=== PATIENT | male | born 1945 ===

== ENCOUNTER → 2022-04-17 15:00 | Outpatient (BNVA) | payer MEDICARE, SELFPAY | PROVIDERS: PCP Family Medicine; Visit Provider Psychiatry & Neurology Neurology | DX: F03.90 Unspecified dementia, unspecified severity, without behavioral disturbance, psychotic disturbance, mood disturbance, and anxiety (principal); R26.9 Unspecified abnormalities of gait and mobility | CPT/HCPCS: 99202 ==

== ENCOUNTER → 2022-06-17 15:22 | Outpatient (BNVA) | payer MEDICARE, SELFPAY | PROVIDERS: PCP Family Medicine; Visit Provider Nurse Practitioner Family | DX: F03.90 Unspecified dementia, unspecified severity, without behavioral disturbance, psychotic disturbance, mood disturbance, and anxiety (principal); R26.9 Unspecified abnormalities of gait and mobility; R41.89 Other symptoms and signs involving cognitive functions and awareness; Z79.899 Other long term (current) drug therapy | CPT/HCPCS: 99212 ==

== ENCOUNTER → 2022-08-19 15:21 | Outpatient (BNVA) | payer MEDICARE, SELFPAY | PROVIDERS: PCP Family Medicine; Visit Provider Nurse Practitioner Family | DX: R26.9 Unspecified abnormalities of gait and mobility (principal); F03.90 Unspecified dementia, unspecified severity, without behavioral disturbance, psychotic disturbance, mood disturbance, and anxiety | CPT/HCPCS: 99212 ==

== ENCOUNTER → 2022-12-07 11:14 | Outpatient (BNVA) | payer MEDICARE, SELFPAY | PROVIDERS: PCP Family Medicine; Visit Provider Nurse Practitioner Family | DX: R41.89 Other symptoms and signs involving cognitive functions and awareness (principal); R26.9 Unspecified abnormalities of gait and mobility; F03.90 Unspecified dementia, unspecified severity, without behavioral disturbance, psychotic disturbance, mood disturbance, and anxiety; Z79.899 Other long term (current) drug therapy | CPT/HCPCS: 99212 ==

== ENCOUNTER → 2023-03-30 09:15 | Outpatient (BNVA) | payer MEDICARE, SELFPAY | PROVIDERS: PCP Family Medicine; Visit Provider Nurse Practitioner Family | DX: F03.90 Unspecified dementia, unspecified severity, without behavioral disturbance, psychotic disturbance, mood disturbance, and anxiety (principal); R41.89 Other symptoms and signs involving cognitive functions and awareness; R26.9 Unspecified abnormalities of gait and mobility; G47.33 Obstructive sleep apnea (adult) (pediatric); Z79.899 Other long term (current) drug therapy; Z99.89 Dependence on other enabling machines and devices | CPT/HCPCS: 99212 ==

== ENCOUNTER → 2023-05-14 19:30 | Outpatient (REF) | payer MEDICARE, SELFPAY | LOC: HO.SL 19:30 | PROVIDERS: PCP Internal Medicine; Visit Provider Nurse Practitioner Family | DX: G47.33 Obstructive sleep apnea (adult) (pediatric) (principal); Z99.89 Dependence on other enabling machines and devices | CPT/HCPCS: 95810 ==

== ENCOUNTER → 2023-05-14 22:19 | Outpatient (BNV) | payer MEDICARE, SELFPAY | PROVIDERS: PCP Internal Medicine; Visit Provider Internal Medicine | DX: G47.33 Obstructive sleep apnea (adult) (pediatric) (principal) | CPT/HCPCS: 95810 ==

== ENCOUNTER 2023-09-02 10:40 | Outpatient (AMB) | payer MEDICARE, SELFPAY ==
--- NOTE | 2023-09-02 10:46 | A.OFFVIS_ITS ---
Intake Vital Signs 09/02/23 10:51 Weight 164 lb 2 oz BP 120/80 Blood Pressure Location Lt brachial Position Sitting Pulse 90 Pulse Source Pulse Oximeter Pulse Oximetry (%) 100 Oxygen Delivery Method Room Air Intake Visit Reasons: f/u appt for weakness & Sleep-Confirmed Prescription Clerk Lenses Required: No Allergies Seasonal Allergies Allergy (Mild, Verified 09/02/23 10:47) Unknown HPI HPI Comments History of Present Illness Details 78 y/o male patient presents with his si ster for follow up of dementia and DEREK. 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 He is on memantine 28 mg daily, no side effect reported. Pt's sister reports his BS is managed well. He eats better now, and visiting nurse comes twice a week to check him. Pt lives with his and he has Meals on Wheels services, and his sister deliver his meals, too. Pt's daughter visit to help the patient. The PSG sleep study result was significant for a mild degree of sleep apnea. The AHI was 10/hr and oxygen loulou was 82%. The sleep study was limited study due to a less amount of sleep recorded and absence of REM sleep. In lag CPAP titration study scheduled this Wednesday. He uses walker, no falls reported. He finished home PT and OT. He can do ADLs with assistance. Denies confusion. He fell from bed, and uses hospital bed with rails to prevent fall. [facility] Medical History Aortic aneurysm DEREK on CPAP Prostate cancer Heart failure Hypertension Hyperlipidemia Paroxysmal atrial fibrillation Diabetes Surgical History History of bladder surgery History of robot-assisted laparoscopic radical prostatectomy Social History (Updated 09/02/23 @ 10:51 by Patty Arita CMA) Household Members: Spouse Household Members Other:: Alcohol intake: former Patient Tobacco Use Status: Former Tobacco user Review of Systems Const All systems reviewed & are unremarkable except as noted in HPI and below Physical Exam Vital Signs: Last Vital Signs Pulse 90 09/02/23 10:51 BP 120/80 09/02/23 10:51 Pulse Ox 100 09/02/23 10:51 Oxygen Delivery Method Room Air 09/02/23 10:51 Const Orientation/consciousness: oriented to person and oriented to place Neuro General: oriented to person and oriented to place Cranial nerves: Yes Bilaterally intact EOM present, Yes Normal facial strength present (left facial droop), Yes Midline tongue present, Yes Ability to bilaterally rotate head present and Yes Ability to bilaterally elevate shoulders present Speech: Other speech findings present (Neuro) (mild slurring) Gait exam (Neuro): Assistive device used (walker) and Other gait observations present (mild off balance and slowing) Motor exam (neuro): 5/5 motor strength present throughout and Normal motor muscle tone present throughout Deep tendon reflexes (DTR's): Right triceps reflex intensity grade: 1+, Left triceps reflex intensity grade: 1+, Rt Biceps (C5, C6): 1+, Left biceps reflex intensity grade: 0, Right brachioradialis reflex intensity grade: 0, Left brachioradialis reflex intensity grade: 0, Right patellar reflex intensity grade: 0 and Left patellar reflex intensity grade: 0 Psych Appearance: grossly normal Affect: normal affect Assessment & Plan Assessment & Plan (1) Cognitive impairment: Code(s): R41.89 - Other symptoms and signs involving cognitive functions and awareness (2) Gait disorder: Comment: multi-factorial diabetes, musculoskeletal , neuropathy? Code(s): R26.9 - Unspecified abnormalities of gait and mobility (3) Dementia: Comment: likely vascular Code(s): F03.90 - Unspecified dementia, unspecified severity, without behavioral disturbance, psychotic disturbance, mood disturbance, and anxiety (4) DEREK on CPAP: Code(s): G47.33 - Obstructive sleep apnea (adult) (pediatric); Z99.89 - Dependence on other enabling machines and devices Plan Continue to take memantine to 28 mg daily. Advised patient to increase PO intake with water. Advised patient to undergo in-lab sleep titration study to find optimal CPAP pressure. Medications: New melatonin 3 mg PO BEDTIME 30 days 30 caps 1RF sleep Coding Level of Care Code Est Pt Level 3 (11458) Diagnoses Cognitive impairment R41.89 Gait disorder R26.9 Dementia F03.90 DEREK on CPAP G47.33; Z99.89
[2023-09-02 10:51] VITALS: BP 120/80; PULSE 90; O2SAT 100
== END 2023-09-02 11:10 | disposition home or self-care (01) ==
PROVIDERS: PCP Internal Medicine; Visit Provider Nurse Practitioner Family
DX: R41.89 Other symptoms and signs involving cognitive functions and awareness (principal); R26.9 Unspecified abnormalities of gait and mobility; F03.90 Unspecified dementia, unspecified severity, without behavioral disturbance, psychotic disturbance, mood disturbance, and anxiety; G47.33 Obstructive sleep apnea (adult) (pediatric); Z99.89 Dependence on other enabling machines and devices
CPT/HCPCS: 99213

== ENCOUNTER → 2023-09-02 10:40 | Outpatient (BNVA) | payer MEDICARE, SELFPAY | PROVIDERS: PCP Internal Medicine; Visit Provider Nurse Practitioner Family | DX: F03.90 Unspecified dementia, unspecified severity, without behavioral disturbance, psychotic disturbance, mood disturbance, and anxiety (principal); R26.9 Unspecified abnormalities of gait and mobility; G47.33 Obstructive sleep apnea (adult) (pediatric); Z99.89 Dependence on other enabling machines and devices | CPT/HCPCS: 99212 ==

== ENCOUNTER → 2023-09-05 22:29 | Outpatient (BNV) | payer MEDICARE, SELFPAY | PROVIDERS: PCP Internal Medicine; Visit Provider Psychiatry & Neurology Neurology | DX: G47.33 Obstructive sleep apnea (adult) (pediatric) (principal) | CPT/HCPCS: 95811 ==

== ENCOUNTER → 2023-09-05 22:35 | Outpatient (REF) | payer MEDICARE, SELFPAY | LOC: HO.SL 22:35 | PROVIDERS: PCP Internal Medicine; Visit Provider Nurse Practitioner Family | DX: G47.33 Obstructive sleep apnea (adult) (pediatric) (principal); Z99.89 Dependence on other enabling machines and devices | CPT/HCPCS: 95811 ==